=== PATIENT | male | born 1955 | race Caucasian/White ===

== ENCOUNTER 2018-01-14 09:52 | Outpatient (CLI) | payer MEDICARE ==
--- NOTE | 2018-01-14 11:52 | RAD ---
THREE VIEWS LUMBAR SPINE: Date: 01-14-18 Comparison: 11-06-17 History: Lumbar foraminal stenosis. FINDINGS: Pedicles intact within the lumbar spine on frontal imaging. Left lateral osteophyte formation noted at L2-3. There is facet hypertrophy and L4-5 and L5-S1. There is no anterolisthesis or retrolisthesis noted. T here is atherosclerotic calcification of the abdominal aorta distally. No acute fracture or evidence of dislocation is seen. IMPRESSION: Degenerative change within the lumbar spine as above. No acute fracture or dislocation. If there are radicular symptoms, MRI may be beneficial. POS: PATRICIA
== END 2018-01-14 09:53 | disposition home or self-care (01) ==
LOC: RAD 09:52
PROVIDERS: ATTEND Nurse Practitioner Family
DX: M99.53 Intervertebral disc stenosis of neural canal of lumbar region (principal); M47.896 Other spondylosis, lumbar region
CPT/HCPCS: 72100

== ENCOUNTER 2019-01-01 15:08 | Outpatient (CLI) | payer MEDICARE ==
--- NOTE | 2019-01-01 16:06 | RAD ---
LUMBAR SPINE FOUR VIEWS: 01/01/19 HISTORY: Lumbar foraminal stenosis. COMPARISON: 11/06/17. FINDINGS: Multilevel disc osteophytosis and facet arthrosis. No abnormal translation between flexion and extens ion. No acute fracture. IMPRESSION: Lumbar spondylosis. No fracture or dislocation. No abnormal translation. POS: C
--- NOTE | 2019-01-01 16:14 | RAD ---
CLEMENTS VIEWS OF SINUSES FOR MRI CLEARANCE: Date: 01/01/19 HISTORY: Concern for foreign body in eye. FINDINGS/IMPRESSION: No radiopaque foreign body is seen. POS: OFF
--- NOTE | 2019-01-01 17:09 | MRI ---
NONCONTRAST MRI LUMBAR SPINE 01/01/19 HISTORY: Lumbar foraminal stenosis, chronic low back pain and left buttock pain which is getting worse. COMPARISON: None available. Patient reportedly has had lumbar spine surgery. FINDINGS: There is focal aneurysmal dilatation of the infrarenal abdominal aorta. This is difficult to accurate ly measure but measures approximately 5.3 cm in greatest AP dimension. This is not well seen on the a xial images due to saturation band. There is a prominent lateral osteophyte at the L2-3 level, and just inferior to this region, at the l evel of the L 3 vertebral body, here is atrophy of the medial aspect of the left psoas muscle. There is a 4 cm exophytic increased signal intensity lesion seen at posterior aspect mid portion left kidney with smaller subcentimeter increased T 2 weighted signal intensity lesion also within the mid portion left kidney each of which likely represents a cyst. The conus medullaris is normal in appearance and terminates at the T12-L1 level. A few scattered increased T1 and T2 weighted signal intensity areas are seen within the vertebral bod ies likely related to small hemangiomas and/or focal areas of fat. T12-L1 level: There is no disc bulge or disc herniation. Central spinal canal and neural foramina are patent. L1-2 level: There is a mild disc osteophyte complex with tiny central disc protrusion resulting in ef facement of the anterior aspect of the thecal sac. The neural foramina are patent. L2-3 level: There is a mild disc osteophyte complex. The findings result in mild left sided neural f oraminal narrowing. The right neural foramen is patent. There is minimal narrowing of the central sp inal canal. L3-4 level: There is a broad based disc osteophyte complex. Facet hypertrophic changes and ligamentou s thickening are present. Findings marrow the ventral subarachnoid space with narrowing of the righ t subarticular zone at this level. There is mild bilateral neural foraminal narrowing. L4-5 level: There is a broad based disc osteophyte complex with small central disc protrusion associa sharad with a very tiny annular tear. Facet hypertrophic changes and ligamentous thickening are noted re sulting in mild to moderate narrowing of the central spinal canal. There is mild right sided neural foraminal narrowing with minimal left sided neural foraminal narrowing. L5-S1 level: There is loss of intervertebral disc height. There is a broad based disc osteophyte comp miesha with left paracentral disc protrusion. This does contact the traversing left S1 nerve root but do es not result in significant deformity of the nerve root. The central spinal canal is patent. There is mild encroachment on each neural foramen. There is a left laminotomy defect present at this level. IMPRESSION: 1. Abdominal aortic aneurysm with gross measurement of 5.3 cm in maximal AP dimensions. 2. Findings likely attributable to left renal cyst; although, a smaller increased T2 weighted s ignal intensity lesion is seen and difficult to characterize. Ultrasound may be helpful for further e valuation. 3. Multilevel degenerative changes within the lumbar spine as described above. 4. Left laminotomy defect at the L5-S1 level. POS: PATRICIA
== END 2019-01-01 15:09 | disposition home or self-care (01) ==
LOC: BICMRI 15:08
PROVIDERS: ATTEND Nurse Practitioner Family
DX: M48.061 Spinal stenosis, lumbar region without neurogenic claudication (principal); M47.816 Spondylosis without myelopathy or radiculopathy, lumbar region; I71.4 Abdominal aortic aneurysm, without rupture; R93.7 Abnormal findings on diagnostic imaging of other parts of musculoskeletal system; Z98.890 Other specified postprocedural states
CPT/HCPCS: 70210; 72110; 72148

== ENCOUNTER 2019-01-20 14:29 | Outpatient (CLI) | payer MEDICARE ==
[2019-01-20 15:03] LABS: Estimated GFR-MDRD - POC Greater than 90
--- NOTE | 2019-01-20 15:33 | CT ---
FPre and postcontrast enhanced images abdomen and pelvis HISTORY: Abdominal aortic aneurysm. Pre and postcontrast enhanced CTA of abdomen and pelvis obtained. 2-D and 3-D reconstruction images p erformed on an independent 3-D workstation. Some areas of scarring seen in the left lower lobe. There is a 6 mm lung parenchymal nodule in the right lower lobe. A second 7 mm lung base nodule also seen in the right lower lobe. No evidence of free intraperitoneal air seen. There is a small umbilical hernia with some intraperitoneal herniation of fat through the small umbil ical defect. The liver and spleen are unremarkable. The pancreas and gallbladder unremarkable. Adrenal glands unremarkable. The right kidney is unremarkable. The left kidney contains an exophytic cyst diameter measuring approximately 3.7 x 2.1 cm. Other small er left renal cortical cysts are present. There is an infrarenal abdominal aortic aneurysm diameter measuring 4.8 x 5.2 cm. No evidence of extr avasation of contrast or extraluminal extension of blood seen in the surrounding retroperitoneal fat. The aneurysm originates well below the renal arteries just above the aortic bifurcation. Superior inf erior length is 6.4 cm. The superior mesenteric artery, celiac artery and inferior mesenteric arteries are patent. The right renal artery is patent. The left renal artery has a small area of focal calcification in th e proximal A1 centimeter from the origin of the left renal artery. This is minimal and results in vaibhav roximately 20-30% of focal area of renal artery stenosis. IMPRESSION: Infrarenal abdominal aortic aneurysm with no evidence of acute hemorrhage surrounding the retroperitoneal region.
== END 2019-01-20 14:30 | disposition home or self-care (01) ==
LOC: BICCT 14:29
PROVIDERS: ATTEND Thoracic Surgery (Cardiothoracic Vascular Surgery)
DX: I71.4 Abdominal aortic aneurysm, without rupture (principal)
CPT/HCPCS: 74174; 82565

== ENCOUNTER 2019-02-09 01:38 | Outpatient (CLI) | payer MEDICARE | END 2019-02-09 01:39 | disposition home or self-care (01) | LOC: LABBT 01:38 | PROVIDERS: ATTEND Thoracic Surgery (Cardiothoracic Vascular Surgery) | DX: Z01.818 Encounter for other preprocedural examination (principal); I71.4 Abdominal aortic aneurysm, without rupture | CPT/HCPCS: 93005; 93010 ==

== ENCOUNTER 2019-02-09 10:30 | Inpatient (IN) | payer MEDICARE ==
[2019-02-09 12:23] LABS: Hemoglobin 15.7 g/dL (14.0-18.0); Mean Corpuscular HGB CONC 33.6 g/dL (32.0-36.0); Mean Corpuscular Volume 92.3 fL (78.0-98.0); Platelet Count 215 thou/uL (130-400); RBC Distribution Width 11.6 % (11.5-14.5); Red Blood Cell (RBC) Count 5.08 mill/uL (4.70-6.10); White Blood Cell (WBC) Count 8.5 thou/uL (4.8-10.8)
[2019-02-09 12:41] LABS: Anion Gap 13 mmol/L (10-20); BUN (Urea Nitrogen) 11 mg/dL (8.4-25.7); Calc. Creatinine Clearance 139 mL/min (70-130); Calcium 9.7 mg/dL (7.8-10.44); Carbon Dioxide 29 mmol/L (23-31); Chloride 99 mmol/L (98-107); Estimated GFR-MDRD Greater than 90; Glucose 99 mg/dL (80-115); Potassium 4.1 mmol/L (3.5-5.1); Sodium 137 mmol/L (136-145)
[2019-02-10] MEDS ORDERED: Heparin 10,000 UNITS/1 ML VIAL ONE (06:38)
[2019-02-10] MEDS ORDERED: Protamine Sulfate 50 MG/5 ML VIAL ONE (06:38)
[2019-02-10] MEDS ORDERED: Fentanyl 250 MCG/5 ML VIAL ONE (06:45)
[2019-02-10] MEDS ORDERED: Midazolam HCl 2 mg/2 ml Vial ONE (06:45)
[2019-02-10] MEDS ORDERED: Bupivacaine HCl 0.5%/Epinephrine 1:200,000/PF 30 ml Vial ONE (06:53)
[2019-02-10] MEDS ORDERED: Albuterol Sulfate HFA (OR ONLY) ONE (09:04)
[2019-02-10] MEDS ORDERED: HYDROcodone/Acetaminophen 5/325 mg Tablet PO PRN (09:29)
[2019-02-10] MEDS ORDERED: Promethazine HCl 25 MG/ML VIAL IM PRN (09:29)
[2019-02-10] MEDS ORDERED: Fentanyl 100 MCG/2 ML VIAL SLOW IVP PRN ×2 (09:29)
[2019-02-10] MEDS ORDERED: Nitroglycerin 50 MG/250 ML BOT 250 ML IVPB PRN (09:29)
[2019-02-10] MEDS ORDERED: Ondansetron PF 4 MG/2 ML Vial IVP PRN (09:29)
[2019-02-10] MEDS ORDERED: Acetaminophen 325 MG TAB PO PRN (09:29)
[2019-02-10 10:30] VITALS: BMI 29.4
[2019-02-10] MEDS: Sodium Chloride 0.9% 1,000 ML IV SCH ×3 (11:28→23:04)
[2019-02-10] MEDS: HYDROcodone/Acetaminophen 5/325 mg Tablet PO PRN ×2 (12:07→19:44)
--- NOTE | 2019-02-10 15:01 | OP ---
DATE OF PROCEDURE: 02/10/2019 PREOPERATIVE DIAGNOSIS: Abdominal aortic aneurysm. POSTOPERATIVE DIAGNOSIS: Abdominal aortic aneurysm. PROCEDURES PERFORMED: 1. Endovascular abdominal aortic repair with [place] System-Main body right 20 x 22 x 152, right iliac extension with 18 flare, left iliac extension with 20 flare. 2. Bilateral pre-close technique with ProGlide crossed x2. 3. Abdominal aortogram. CO-SURGEON: Dwayne Del Toro MD ANESTHESIA: General endotracheal, Dr. Alyssa Delatorre MD Total heparin, 7500 units. Protamine given at the end of the case, 50 mg. TOTAL CONTRAST: 62 mL. FLUORO TIME: 13 minutes and 37 seconds. DESCRIPTION OF PROCEDURE: After consent was obtained, the patient was brought to the operating room and placed in supine position on the operating table. Appropriate central line was placed and general endotracheal anesthesia was induced. Groins were prepped and draped in the usual sterile fashion. Using ultrasound guidance, percutaneous access with common femoral artery was obtained and a 6-Maltese sheath placed. Crossed ProGlides were then placed bilaterally and clamped. The patient was given 7500 units of heparin. On the right, the deployment sheath was passed over the Lunderquist wire into the abdominal aneurysm neck. On the left, pigtail catheter was placed in the upper abdominal aorta. Abdominal aortogram was performed, localizing the renal arteries and measuring the length. We selected the above main body. Main body was passed over the Lunderquist wire on the right and deployed just below the renal arteries. On the left, angled Jimenez catheter and Lunderquist wire were used to cannulate the gate. A pigtail catheter was pulled in the neck of the graft. The Lunderquist wire was then deployed and the pigtail catheter removed. A 12-M[place]ese sheath was placed into the graft. The hand-injected arteriogram was performed and the appropriate flared limb selected. This was then deployed in the left iliac system. Hand-injected arteriogram was performed through the sheath on the right and then appropriate flared limb was selected and deployed on the right. Balloon angioplasty was performed for the full length of the graft. Pigtail catheter was used to perform abdominal aortogram showing good seal and no endoleak. Graft was appropriately positioned below the renal arteries bilaterally with good seal distally in the iliac arteries. The guidewires were then exchanged for Bentson guidewires. Sheaths were removed and ProGlides tightened around the Bentson wires. Once good hemostasis had been obtained, the wires were removed and final hemostasis obtained with the ProGlides and they were cut. Dermabond was applied to the skin. There were palpable femoral pulses bilaterally. Groin access sites were injected with 0.5% Marcaine with epinephrine. The patient was then awakened, extubated, and transferred to the recovery room. A 50 mg of protamine was given with good hemostasis. Job ID: [id number]
[2019-02-10] MEDS ORDERED: PROPOFOL 200 MG/20 ML VIAL ONE (16:28)
[2019-02-10] MEDS ORDERED: Glycopyrrolate 0.2 MG/ML 5 ML SYRINGE ONE (16:28)
[2019-02-10] MEDS ORDERED: Rocuronium Bromide 10 MG/ML (10ML VIAL) ONE (16:28)
[2019-02-10] MEDS ORDERED: PHENYLEPHRINE-NS 100 MCG/ML 10 ML SYRINGE ONE (16:28)
[2019-02-10] MEDS ORDERED: Metoprolol Tartrate 5 MG/5 ML VIAL ONE (16:28)
[2019-02-10] MEDS ORDERED: Heparin 10,000 UNITS/ 10 ML VIAL ONE (16:28)
[2019-02-10] MEDS: CEFAZOLIN 2 GM in Premix Bag 1 BAG IVPB SCH ×2 (16:31→21:20)
[2019-02-10] MEDS ORDERED: Furosemide 40 MG TAB PO SCH ×2 (21:00)
[2019-02-10] MEDS ORDERED: Atorvastatin Calcium 40 MG TAB PO SCH (21:00)
[2019-02-10] MEDS ORDERED: traMADol HCl 50 MG TAB PO SCH (21:00)
[2019-02-10] MEDS ORDERED: Non-Formulary Item 1 EACH (Atorvastatin Calcium [Atorvastatin Calcium] 80 MG) PO SCH (21:00)
[2019-02-10] MEDS ORDERED: Cilostazol 100 MG TAB PO SCH ×2 (21:00)
[2019-02-10] MEDS: traMADol HCl 50 MG TAB PO SCH (21:53)
[2019-02-11 03:18] LABS: #Eosinphils 0.2 thou/uL (0.0-0.7); #Lymphocytes 1.4 thou/uL (1.20-3.40); #Monocytes 0.8 thou/uL (0.11-0.59); %Basophils 0.2 % (0.0-1.0); %Eosinophils 2.2 % (0.0-10.0); %Lymphocytes 14.7 % (21.0-51.0); %Monocytes 8.7 % (0.0-10.0); %Neutrophils 74.2 % (42.0-75.0); Hemoglobin 14.7 g/dL (14.0-18.0); Mean Corpuscular HGB CONC 34.1 g/dL (32.0-36.0); Mean Corpuscular Hemoglobin 32.6 pg (27.0-31.0); Mean Corpuscular Volume 95.6 fL (78.0-98.0); Mean Platelet Volume 7.7 fL (7.4-10.4); Platelet Count 151 thou/uL (130-400); RBC Distribution Width 11.7 % (11.5-14.5); Red Blood Cell (RBC) Count 4.53 mill/uL (4.70-6.10); White Blood Cell (WBC) Count 9.4 thou/uL (4.8-10.8)
[2019-02-11 03:37] LABS: Anion Gap 12 mmol/L (10-20); BUN (Urea Nitrogen) 10 mg/dL (8.4-25.7); Calc. Creatinine Clearance 136 mL/min (70-130); Calcium 9.1 mg/dL (7.8-10.44); Carbon Dioxide 29 mmol/L (23-31); Chloride 101 mmol/L (98-107); Estimated GFR-MDRD Greater than 90; Glucose 101 mg/dL (80-115); Potassium 3.9 mmol/L (3.5-5.1); Sodium 138 mmol/L (136-145)
[2019-02-11] MEDS: CEFAZOLIN 2 GM in Premix Bag 1 BAG IVPB SCH (05:23)
--- NOTE | 2019-02-11 06:01 | DIS ---
DATE OF ADMISSION: 02/10/2019 DATE OF DISCHARGE: 02/11/2019 DIAGNOSIS: Abdominal aortic aneurysm. PROCEDURE PERFORMED: Endovascular repair of abdominal aortic aneurysm with a bifurcated [place] endovascular system. DESCRIPTION OF HOSPITAL STAY: Mr. Padron was admitted for elective abdominal aneurysm repair. He has done well postoperatively and being discharged to home. DISCHARGE MEDICATIONS: Unchanged at the time of discharge. Job ID: [id number]
[2019-02-11] MEDS: traMADol HCl 50 MG TAB PO SCH (07:16)
[2019-02-11 07:24] VITALS: TEMP 98.3
[2019-02-11] MEDS ORDERED: Digoxin 0.25 MG TAB PO SCH ×2 (09:00)
[2019-02-11] MEDS ORDERED: Aspirin 81 mg Enteric Coated Tablet PO SCH (09:00)
[2019-02-11] MEDS ORDERED: Folic Acid 1 MG TAB PO SCH (09:00)
== END 2019-02-11 10:21 | disposition home or self-care (01) | DRG 269 ==
LOC: SURG A 02-10 05:51 → CCU 02-10 10:05
PROVIDERS: ADMIT Thoracic Surgery (Cardiothoracic Vascular Surgery); ATTEND Thoracic Surgery (Cardiothoracic Vascular Surgery)
PROC: 04V03DZ Restriction of Abdominal Aorta with Intraluminal Device, Percutaneous Approach (ICD-10-PCS; principal; 2019-02-10)
PROC: B410ZZZ Fluoroscopy of Abdominal Aorta (ICD-10-PCS; 2019-02-10)
DX: I71.4 Abdominal aortic aneurysm, without rupture (principal); E78.5 Hyperlipidemia, unspecified; I48.91 Unspecified atrial fibrillation; I73.9 Peripheral vascular disease, unspecified; J44.9 Chronic obstructive pulmonary disease, unspecified; G47.30 Sleep apnea, unspecified; F17.210 Nicotine dependence, cigarettes, uncomplicated
CPT/HCPCS: 36415; 76000; 80048; 85025; 85027; 86850; 86900; 86901; 93005; 93010; 94640; C1760; C1769; J0670; J0690; J1642; J1644; J2250; J2704; J2720; J3010; J7620

== ENCOUNTER 2021-07-09 12:34 | Outpatient (CLI) | payer MEDICARE | END 2021-07-09 12:35 | disposition home or self-care (01) | LOC: BICRAD 12:34 | PROVIDERS: ATTEND Internal Medicine Pulmonary Disease | DX: R06.00 Dyspnea, unspecified (principal) | CPT/HCPCS: 71046 ==

== ENCOUNTER 2022-03-28 19:30 | Outpatient (CLI) | payer MEDICARE | END 2022-03-28 19:31 | disposition home or self-care (01) | LOC: SLEEPLAB 19:30 | PROVIDERS: ATTEND Internal Medicine | DX: G47.33 Obstructive sleep apnea (adult) (pediatric) (principal); R09.02 Hypoxemia | CPT/HCPCS: 95810 ==

== ENCOUNTER 2022-06-26 13:11 | Outpatient (CLI) | payer MEDICARE | END 2022-06-26 13:12 | disposition home or self-care (01) | LOC: BICMRI 13:11 | PROVIDERS: ATTEND Physician Assistant | DX: M51.34 Other intervertebral disc degeneration, thoracic region (principal) | CPT/HCPCS: 72146 ==

== ENCOUNTER 2022-07-14 19:30 | Outpatient (CLI) | payer MEDICARE | END 2022-07-14 19:31 | disposition home or self-care (01) | LOC: SLEEPLAB 19:30 | PROVIDERS: ATTEND Internal Medicine | DX: G47.33 Obstructive sleep apnea (adult) (pediatric) (principal) | CPT/HCPCS: 95811 ==

== ENCOUNTER 2024-08-18 09:30 | Outpatient (CLI) | payer MEDICARE | END 2024-08-18 09:31 | disposition home or self-care (01) | LOC: PET 09:30 | PROVIDERS: ATTEND Internal Medicine | DX: R91.1 Solitary pulmonary nodule (principal) | CPT/HCPCS: 78815; A9552 ==